=== PATIENT | female | born 1950 | race Caucasian/White ===

== ENCOUNTER 2019-09-24 09:03 | Day surgery (SDC) | payer MEDICARE, OTHER ==
[~2019-09-24] VITALS: Ht 167.6 cm; Wt 72.6 kg
[~2019-09-24 09:03] MED LIST: BENADRYL25 MG PO; FENO145 PO; FISH OIL 1,2001 EAC6 PO; LEVSOD25 PO; METF500 PO; OMEP20ER PO; VICTOZA 2-0.6 MG/0.1 SC; Vitamin B-121000 MCG PO; Vitamin D2000 UNIT PO
--- NOTE | 2019-09-24 09:50 | NUR ---
Ambulatory in Day Surgery History, Chart, Medications and Allergies reviewed before start of procedure.Patient confirms NPO status and agrees with scheduled surgery. Lungs clear T/O to Auscultation. Patient States Post-Procedure ride home has been arranged WTIH AUNT
--- NOTE | 2019-09-24 10:11 | NUR ---
09/24/19 1011 Princess Jara History, Chart, Medications and Allergies reviewed before start of procedure.Bite Block PlacedPATIENT DETERMINED TO BE ASA APPROPRIATE FOR PROPOFOL SEDATION PRIOR TO START OF PROCEDURE BY .MONITOR INTACT WITH CONTINUOUS PULSE OXIMETRY AND INTERMITTENT BP.3-LEAD EKG REVIEWED WITH PHYSICIAN PRIOR TO START OF PROCEDURE.O2 VIA N/C INTACT THROUGHOUT SEDATION/PROCEDURE.
--- NOTE | 2019-09-24 11:02 | NUR ---
Patient up to Ambulate independently. Gait steady. Discharge instructions reviewed with patient. Patient verbalizes understanding. Copy given to patient to take home. Patient States Post-Procedure ride home has been arranged. Discharged via wheelchair to private car for ride home.
== END 2019-09-24 11:24 | disposition home or self-care (01) ==
LOC: ORSCMMR 09:03 → ORD 10:00 → ORSCMMR 11:24
PROVIDERS: Internal Medicine Gastroenterology
PROC: 0DB68ZX Excision of Stomach, Via Natural or Artificial Opening Endoscopic, Diagnostic (ICD-10-PCS; principal; 2019-09-24 10:00)
PROC: 0DB48ZX Excision of Esophagogastric Junction, Via Natural or Artificial Opening Endoscopic, Diagnostic (ICD-10-PCS; principal; 2019-09-24 10:00)
DX: K22.70 Barrett's esophagus without dysplasia (principal); R13.10 Dysphagia, unspecified; K21.9 Gastro-esophageal reflux disease without esophagitis; K44.9 Diaphragmatic hernia without obstruction or gangrene; E03.9 Hypothyroidism, unspecified; E78.00 Pure hypercholesterolemia, unspecified; E11.9 Type 2 diabetes mellitus without complications; Z79.84 Long term (current) use of oral hypoglycemic drugs; Z79.899 Other long term (current) drug therapy
CPT/HCPCS: 82947; 88305; 88342; J2704; J7120

== ENCOUNTER → 2020-03-20 | Outpatient (CLI) | payer MEDICARE, OTHER ==
[2020-03-20 16:25] LABS: CHOL/HDL RATIO 8.7; Cholesterol 227 mg/dL (50-200); HDL Cholesterol 26 mg/dL (>39); LDL/HDL RATIO 4.8; Low Density Lipoprotein Chol 124 mg/dL (0-110); Triglycerides 385 mg/dL (30-160); Very Low Density Lipoprot Chol 77 mg/dL (6-32)
== END | disposition home or self-care (01) ==
LOC: LAB SHORT 13:56
PROVIDERS: Family Medicine
DX: E11.9 Type 2 diabetes mellitus without complications (principal)
CPT/HCPCS: 80061; 83036

== ENCOUNTER → 2020-10-16 | Outpatient (CLI) | payer MEDICARE, OTHER | END | disposition home or self-care (01) | LOC: LAB SHORT 12:57 → LAB 12:57 | DX: R31.9 Hematuria, unspecified (principal) | CPT/HCPCS: 87086 ==

== ENCOUNTER → 2020-10-23 | Outpatient (CLI) | payer MEDICARE, OTHER | END | disposition home or self-care (01) | LOC: LAB 10:40 → LAB SHORT 10:40 | DX: R31.9 Hematuria, unspecified (principal) | CPT/HCPCS: 87086 ==

== ENCOUNTER → 2021-03-22 | Outpatient (CLI) | payer MEDICARE, OTHER | END | disposition home or self-care (01) | LOC: LAB 18:09 → LAB SHORT 18:09 | DX: R30.9 Painful micturition, unspecified (principal) | CPT/HCPCS: 87077; 87086; 87186 ==

== ENCOUNTER → 2021-05-17 | Outpatient (CLI) | payer MEDICARE, OTHER | END | disposition home or self-care (01) | LOC: LAB SHORT 15:15 | DX: N39.0 Urinary tract infection, site not specified (principal) | CPT/HCPCS: 87086 ==

== ENCOUNTER → 2021-08-26 | Outpatient (CLI) | payer MEDICARE, OTHER | END | disposition home or self-care (01) | LOC: LAB SHORT 12:15 → LAB 12:15 | DX: R30.9 Painful micturition, unspecified (principal) | CPT/HCPCS: 87086 ==

== ENCOUNTER → 2021-09-07 | Outpatient (CLI) | payer MEDICARE, OTHER | END | disposition home or self-care (01) | LOC: LAB SHORT 12:02 | DX: R30.0 Dysuria (principal) | CPT/HCPCS: 87077; 87086; 87186 ==

== ENCOUNTER 2022-06-29 08:09 | Day surgery (SDC) | payer MEDICARE, OTHER ==
[~2022-06-29] VITALS: Ht 167.6 cm; Wt 75.8 kg
[2022-06-29] MEDS ORDERED: FARXIGA5 MG PO (09:09)
[2022-06-29] MEDS ORDERED: OMEGA-3 1,0501 EACH PO (09:11)
[2022-06-29] MEDS ORDERED: OZEMPIC1 MG/0.72 SC (09:11)
[2022-06-29] MEDS ORDERED: MELATONIN5 M1 PO (09:13)
[2022-06-29] MEDS ORDERED: DICLEGIS DR 101 EAC1 PO (09:13)
--- NOTE | 2022-06-29 09:42 | NUR ---
Ambulatory in Day Surgery History, Chart, Medications and Allergies reviewed before start of procedure. Lungs clear T/O to Auscultation. Patient confirms NPO status and agrees with scheduled surgery. Pre-Op teaching done. Pt verbalizes understanding. Patient States Post-Procedure ride home has been arranged.
--- NOTE | 2022-06-29 09:46 | NUR ---
06/29/22 0946 Melody Buchanan HISTORY, CHART, MEDICATIONS AND ALLERGIES REVIEWED BEFORE START OF PROCEDURE. PATIENT CONFIRMS NPO STATUS AND AGREES WITH SCHEDULED PROCEDURE. 3-LEAD EKG REVIEWED WITH PHYSICIAN PRIOR TO START OF PROCEDURE. MONITOR INTACT WITH CONTINUOUS PULSE OXIMETRY,CAPNOGRAPHY, 3-LEAD EKG, INTERMITTENT BP. SUPPLEMENTAL O2 TO BE TITRATED THROUGHOUT PROCEDURE TO MAINTAIN O2 SATURATION ABOVE 90%. PATIENT DETERMINED TO BE ASA APPROPRIATE FOR PROPOFOL SEDATION PRIOR TO START OF PROCEDURE BY DR. JUAREZ. MEDICATION ADMINISTRATION BY ORD.ERF.
== END 2022-06-29 10:31 | disposition home or self-care (01) ==
LOC: ORSCMMR 08:09 → ORD 09:30 → ORSCMMR 10:31
PROVIDERS: Internal Medicine Gastroenterology
PROC: 0DB48ZX Excision of Esophagogastric Junction, Via Natural or Artificial Opening Endoscopic, Diagnostic (ICD-10-PCS; principal; 2022-06-29 09:30)
DX: K22.70 Barrett's esophagus without dysplasia (principal); K44.9 Diaphragmatic hernia without obstruction or gangrene; E11.9 Type 2 diabetes mellitus without complications; E03.9 Hypothyroidism, unspecified; E78.00 Pure hypercholesterolemia, unspecified; Z79.84 Long term (current) use of oral hypoglycemic drugs; Z79.899 Other long term (current) drug therapy
CPT/HCPCS: 82947; 88305; 88312; A9270; J2704; J7120

== ENCOUNTER → 2022-07-04 | Outpatient (CLI) | payer MEDICARE, OTHER ==
[~2022-07-04] MED LIST changes: +DICLEGIS DR 101 EAC1 PO; +FARXIGA5 MG PO; +MELATONIN5 M1 PO; +OMEGA-3 1,0501 EACH PO; +OZEMPIC1 MG/0.72 SC
== END | disposition home or self-care (01) ==
LOC: LAB SHORT 14:25 → LAB 14:25
DX: N39.0 Urinary tract infection, site not specified (principal)
CPT/HCPCS: 87077; 87086; 87186

== ENCOUNTER 2022-07-25 09:02 | Day surgery (SDC) | payer MEDICARE, OTHER ==
[2022-07-25] VITALS (19 sets, daily range): BP systolic 105–152; BP diastolic 62–96
[~2022-07-25] VITALS: Ht 167.6 cm; Wt 75.4 kg
[~2022-07-25 09:02] MED LIST changes: +OZEMPIC1 MG/0.72 SQ
--- NOTE | 2022-07-25 10:40 | NUR ---
07/25/22 1040 Sara Maldonado HISTORY, CHART, MEDICATIONS AND ALLERGIES REVIEWED BEFORE START OF PROCEDURE. PATIENT CONFIRMS NPO STATUS AND AGREES WITH SCHEDULED PROCEDURE. 3-LEAD EKG REVIEWED WITH PHYSICIAN PRIOR TO START OF PROCEDURE. MONITOR INTACT WITH CONTINUOUS PULSE OXIMETRY,CAPNOGRAPHY, 3-LEAD EKG, INTERMITTENT BP. SUPPLEMENTAL O2 TO BE TITRATED THROUGHOUT PROCEDURE TO MAINTAIN O2 SATURATION ABOVE 90%. PATIENT DETERMINED TO BE ASA APPROPRIATE FOR PROPOFOL SEDATION PRIOR TO START OF PROCEDURE BY DR. JUAREZ. MALLAMPATI CLASS 3 AIRWAY: VISUALIZATION OF ONLY THE BASE OF THE UVULA.
--- NOTE | 2022-07-25 11:37 | NUR ---
Discharge instructions reviewed with patient. Patient verbalizes understanding. Copy given to patient to take home. Patient States Post-Procedure ride home has been arranged. Discharged via wheelchair to private car for ride home.
== END 2022-07-25 22:36 | disposition home or self-care (01) ==
LOC: ORSCMMR 09:02 → ORD 10:30 → ORSCMMR 22:36
PROVIDERS: Internal Medicine Gastroenterology
PROC: 0DBE8ZX Excision of Large Intestine, Via Natural or Artificial Opening Endoscopic, Diagnostic (ICD-10-PCS; principal; 2022-07-25 10:30)
PROC: 0DBL8ZX Excision of Transverse Colon, Via Natural or Artificial Opening Endoscopic, Diagnostic (ICD-10-PCS; principal; 2022-07-25 10:30)
DX: R10.31 Right lower quadrant pain (principal); D12.3 Benign neoplasm of transverse colon; R14.0 Abdominal distension (gaseous); K64.8 Other hemorrhoids; K21.9 Gastro-esophageal reflux disease without esophagitis; E11.9 Type 2 diabetes mellitus without complications; E78.00 Pure hypercholesterolemia, unspecified; E03.9 Hypothyroidism, unspecified; Z79.899 Other long term (current) drug therapy; Z79.84 Long term (current) use of oral hypoglycemic drugs
CPT/HCPCS: 82947; 88305; J2704; J7120

== ENCOUNTER 2024-01-22 09:25 | Day surgery (SDC) | payer MEDICARE, OTHER ==
[~2024-01-22] VITALS: Ht 167.6 cm; Wt 72.2 kg
[2024-01-22] VITALS (12 sets, daily range): BP systolic 118–164; BP diastolic 49–112
[~2024-01-22 09:25] MED LIST changes: +AMOCLA875 PO; +BASAGLAR K100 UNIT/1 SC; +BYDUREON B2 MG/0.81 SQ; +Benzocaine Oral Spray 0.5ML UD ONE; +GLIP10 PO; +Lactated Ringer's 1,000 ML IV SCH; +NITR100CA PO; +ONDA4ODT MM; +URITRAX47 GM PO
[2024-01-22] MEDS ORDERED: propofoL 20 ML IV ONE (10:33)
--- NOTE | 2024-01-22 10:58 | NUR ---
01/22/24 1058 Dawit Boo CONFIRMED AND REVIEWED H&P, MEDCICATIONS, ALLERGIES, MEDICAL HISTORY, RESPIRATORY HISTORY, VITAL SIGNS, 3-LEAD EKG, CONSENTS, AND PHYSICIAN ORDERS. PATIENT CONFIRMS NPO STATUS AND AGREES WITH SCHEDULED PROCEDURE. MONITOR INTACT WITH CONTINUOUS PULSE OXIMETRY, CAPNOGRAPHY, 3-LEAD EKG, INTERMITTENT BP. SUPPLEMENTAL O2 TO BE TITRATED THROUGHOUT PROCEDURE TO MAINTAIN O2 SATURATION ABOVE 90%. PATIENT DETERMINED TO BE ASA APPROPRIATE FOR PROPOFOL SEDATION PRIOR TO START OF PROCEDURE BY DR. JUAREZ. Bite Block Placed AFTER FIRST DOSE OF SEDATION.
--- NOTE | 2024-01-22 11:40 | NUR ---
DISCHARGE NOTE PT A&OX4, BREATHING RA, TOLERATING PO FLUIDS, NO COMPLAINTS. PT DRESSED INDEPENDENTLY. Patient up to Ambulate independently. Gait steady. Discharge instructions reviewed with patient. Patient verbalizes understanding. Copy given to patient to take home.ABDOMEN SOFT AND NON TENDER. Discharged via wheelchair to private car for ride home.
== END 2024-01-22 11:45 | disposition home or self-care (01) ==
LOC: ORSCMMR 09:25 → ORD 10:30 → ORSCMMR 10:30
PROVIDERS: Internal Medicine Gastroenterology
PROC: 0DB98ZX Excision of Duodenum, Via Natural or Artificial Opening Endoscopic, Diagnostic (ICD-10-PCS; principal; 2024-01-22 10:30)
PROC: 0DB68ZX Excision of Stomach, Via Natural or Artificial Opening Endoscopic, Diagnostic (ICD-10-PCS; principal; 2024-01-22 10:30)
PROC: 0DB48ZX Excision of Esophagogastric Junction, Via Natural or Artificial Opening Endoscopic, Diagnostic (ICD-10-PCS; principal; 2024-01-22 10:30)
DX: R10.11 Right upper quadrant pain (principal); E78.1 Pure hyperglyceridemia; E11.9 Type 2 diabetes mellitus without complications; K22.70 Barrett's esophagus without dysplasia; K21.9 Gastro-esophageal reflux disease without esophagitis; E03.9 Hypothyroidism, unspecified; Z79.84 Long term (current) use of oral hypoglycemic drugs; Z79.899 Other long term (current) drug therapy
CPT/HCPCS: 82947; 88305; 88342; A9270; J2704; J7120

== ENCOUNTER → 2024-07-18 | Outpatient (CLI) | payer MEDICARE, OTHER ==
[~2024-07-18] MED LIST changes: -Benzocaine Oral Spray 0.5ML UD ONE; -Lactated Ringer's 1,000 ML IV SCH
== END ==
LOC: LAB SHORT 18:58 → LAB 18:58
DX: N39.0 Urinary tract infection, site not specified (principal)
CPT/HCPCS: 87077; 87086; 87186

== ENCOUNTER → 2024-11-07 | Outpatient (CLI) | payer MEDICARE, OTHER | LOC: LAB SHORT 15:18 → LAB 15:18 | DX: N39.0 Urinary tract infection, site not specified (principal) | CPT/HCPCS: 87077; 87086; 87186 ==

== ENCOUNTER → 2024-12-07 | Outpatient (CLI) | payer MEDICARE, OTHER | LOC: LAB SHORT 18:37 → LAB 18:37 | DX: R30.0 Dysuria (principal) | CPT/HCPCS: 87086 ==

== ENCOUNTER → 2025-03-19 | Outpatient (CLI) | payer MEDICARE, OTHER ==
[2025-03-21 02:08] LABS: COTININE, URN, SCREEN Negative
== END ==
LOC: LAB SHORT 12:30 → LAB 12:30
PROVIDERS: Orthopaedic Surgery
DX: Z87.891 Personal history of nicotine dependence (principal)